=== PATIENT | male | born 1930 | race Caucasian/White ===

== ENCOUNTER → 2017-07-27 | Outpatient (CLI) | payer MEDICARE, OTHER | END | disposition home or self-care (01) | LOC: MRI 16:12 | DX: M51.16 Intervertebral disc disorders with radiculopathy, lumbar region (principal) | CPT/HCPCS: 72148 ==

== ENCOUNTER 2021-07-23 16:57 | Emergency (ER) | payer MEDICARE, OTHER ==
[~2021-07-23] VITALS: Ht 170.2 cm; Wt 77.2 kg
--- NOTE | 2021-07-23 17:56 | RAD ---
CT HEAD AND C-SPINE WO History: Fall, head and neck pain. Comparison: CT head 05/01/2021. Technique: Noncontrast CT of the head and cervical spine. Findings: CT HEAD: There is no evidence for intracranial mass or hemorrhage. There is no hydrocephalus or midline shift. No abnormal extra-axial fluid collections are present. No evidence of acute territorial infarction. Right maxillary sinus fluid level. There is a 1.4 x 5.9 cm left occipital extra-axial calcification adjacent to the inner table of the s kull redemonstrated. CT CERVICAL SPINE: There is no evidence for fracture in the cervical spine. Reversal of the normal cervical lordosis at C5-C6. Circumferential disc osteophyte complex causes severe left neural foraminal narrowing at C5-C6. Multilevel facet hypertrophy and degenerative disc disease. No destructive osseous lesions are seen. Limited evaluation of the soft tissues of the neck and of the upper chest is unremarkable. Impression: 1. No acute intracranial findings. 2. No acute osseous abnormality in the cervical spine. 3. 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 4. Cervical spondylosis with severe neuroforaminal narrowing on the left at C5-C6. ------- Exposure: One or more of the following individualized dose reduction techniques were utilized for thi s examination: 1. Automated exposure control 2. Adjustment of the mA and/or kV according to patient size 3. Use of iterative reconstruction technique. Electronically signed by: Eduardo Leblanc MD (07/23/2021 5:53 PM) [facility]
--- NOTE | 2021-07-23 18:18 | RAD ---
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 No periprosthetic fracture. No joint effusion or focal soft tissue abnormality. There are vascular calcifications. IMPRESSION: No acute osseous abnormality. Electronically signed by: Jacqueline Sexton MD (07/23/2021 6:15 PM) [id number]
[2021-07-23] MEDS ORDERED: HYDROcodone/APAP 5/325MG 1 TAB TABLET PO ONE (19:15)
[2021-07-23 20:34] VITALS: BP 147/84
--- NOTE | 2021-07-23 21:38 | PHYS DOC ---
Past Medical History Additional Past Medical Histor: Patient states he has no health history but he is on several medications. Past Surgical History: Knee Replacement Additional Past Surgical Histo: Bilateral knee replacement Smoking Status: Never Smoker Alcohol Use: None General Adult EDM: Chief Complaint: MECHANICAL FALL HPI: HPI: Patient is a 89 year old male who presents to the ED today complaining of 4 out of 10 right knee pain radiating to the right costa and ankle, symptoms began couple minutes prior to coming to the ED, patient states he was ambulating, his right knee gave out and he fell on it. Patient denies any loss of consciousness, reports hitting his left side of the head on a cabinet. He states he is on a blood thinner. Denies any neck pain. Denies any mid or low back pain. RN interpreted for [place] Review of Systems: Review of Systems: Constitutional: Denies fever or chills. [] Eyes: Denies change in visual acuity. [] HENT: Denies nasal congestion or sore throat. [] Respiratory: Denies cough or shortness of breath. [] Cardiovascular: Denies chest pain or edema. [] GI: Denies abdominal pain, nausea, vomiting, bloody stools or diarrhea. [] : Denies dysuria. [] Musculoskeletal: Reports right knee pain, right costa and right ankle pain, denies back pain Integument: Denies rash. [] Neurologic: Denies headache, focal weakness or sensory changes. [] [] Psychiatric: Denies depression or anxiety. [] Heart Score: C/O Chest Pain: N/A Risk Factors: Risk Factors: DM, Current or recent (<one month) smoker, HTN, HLP, family history of CAD, obesity. Risk Scores: Score 0 - 3: 2.5% MACE over next 6 weeks - Discharge Home Score 4 - 6: 20.3% MACE over next 6 weeks - Admit for Clinical Observation Score 7 - 10: 72.7% MACE over next 6 weeks - Early Invasive Strategies Current Medications: Current Medications Medications (Trade) Dose Ordered Sig/Shauna Start Time Stop Time Status Last Admin Dose Admin Acetaminophen/ Hydrocodone Bitart (Lortab 5/325) 1 tab 1X ONCE 07/23/21 19:15 07/23/21 19:16 DC 07/23/21 19:19 1 TAB Allergies: Allergies: Allergies Coded Allergies Type Severity Reaction Last Updated Verified No Known Drug Allergies 07/23/21 No Physical Exam: PE: Constitutional: Well developed, well nourished, no acute distress, non-toxic appearance. [] HENT: Normocephalic, atraumatic, bilateral external ears normal, oropharynx moist, no oral exudates, nose normal. [] Eyes: PERRLA, EOMI, conjunctiva normal, no discharge. [] Neck: Normal range of motion, no tenderness, supple, no stridor. [] Cardiovascular:Heart rate regular rhythm, no murmur [] Lungs & Thorax: Bilateral breath sounds clear to auscultation [] Abdomen: Bowel sounds normal, soft, no tenderness, no masses, no pulsatile masses. [] Skin: Warm, dry, no erythema, no rash. [] Back: No tenderness, no CVA tenderness. [] Extremities: Old healed surgical incision noted on the lateral aspect of the right knee, diffuse tenderness to the right anterior knee, limited range of motion to the right knee especially flexion due to pain, no tenderness, no cyanosis, no clubbing, venous stasis to bilateral lower extremities, +2 bilateral pedal pulses Neurologic: Alert and oriented X 3, normal motor function, normal sensory function, no focal deficits noted. Cranial nerves II through XII intact Psychologic: Affect normal, judgement normal, mood normal. 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 No periprosthetic fracture. No joint effusion or focal soft tissue abnormality. There are vascular calcifications. IMPRESSION: No acute osseous abnormality. Electronically signed by: Jacqueline Sexton MD (07/23/2021 6:15 PM) [id number] DICTATED and SIGNED BY: JACQUELINE SEXTON MD DATE: 07/23/21 [id number] 0 PROCEDURE: CT HEAD AND CERVICAL SPINE WO CT HEAD AND C-SPINE WO History: Fall, head and neck pain. Comparison: CT head 05/01/2021. Technique: Noncontrast CT of the head and cervical spine. Findings: CT HEAD: There is no evidence for intracranial mass or hemorrhage. There is no hydrocephalus or midline shift. No abnormal extra-axial fluid collections are present. No evidence of acute territorial infarction. Right maxillary sinus fluid level. There is a 1.4 x 5.9 cm left occipital extra-axial calcification adjacent to the inner table of the skull redemonstrated. CT CERVICAL SPINE: There is no evidence for fracture in the cervical spine. Reversal of the normal cervical lordosis at C5-C6. Circumferential disc osteophyte complex causes severe left neural foraminal narrowing at C5-C6. Multilevel facet hypertrophy and degenerative disc disease. No destructive osseous lesions are seen. Limited evaluation of the soft tissues of the neck and of the upper chest is unremarkable. Impression: 1. No acute intracranial findings. 2. No acute osseous abnormality in the cervical spine. 3. 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 4. Cervical spondylosis with severe neuroforaminal narrowing on the left at C5- C6. ------- Exposure: One or more of the following individualized dose reduction techniques were utilized for this examination: 1. Automated exposure control 2. Adjustment of the mA and/or kV according to patient size 3. Use of iterative reconstruction technique. Electronically signed by: Eduardo Ang MD (07/23/2021 5:53 PM) [facility] DICTATED and SIGNED BY: EDUARDO ANG MD DATE: 07/23/21 [id number] 0 Course & Med Decision Making: Course & Med Decision Making Pertinent Labs and Imaging studies reviewed. (See chart for details) This is a 89-year-old male patient presented to the ED to be evaluated after falling, complaining of right knee pain radiating to the right costa and right ankle. Also hit his head on a cabinet. CT of the head, cervical spine-negative for any acute findings, right knee x-rays interpreted by radiologist are negative for any acute findings. Right ankle and right tib-fib x-rays interpreted by Dr. Shay are negative discharge to home. Follow-up with PCP. Isabelle Disclaimer: Isabelle Disclaimer: This electronic medical record was generated, in whole or in part, using a voice recognition dictation system. Departure Departure Impression: Primary Impression: Right ankle pain Qualified Codes: M25.571 - Pain in right ankle and joints of right foot Additional Impressions: Right knee pain Qualified Codes: M25.561 - Pain in right knee Head contusion Qualified Codes: S00.03XA - Contusion of scalp, initial encounter Fall from standing Qualified Codes: W19.XXXA - Unspecified fall, initial encounter Disposition: HOME / SELF CARE / HOMELESS Condition: STABLE Referrals: CHEL BOX MD (PCP) follow up next week Patient Instructions: Ankle Pain, Fall Prevention and Home Safety, Knee Pain, [id number] Additional Instructions: You were evaluated in the emergency room after falling. Your CT of the head, neck, right knee x-rays, right tib-fib/leg x-ray, and right ankle x-rays are negative for any acute findings. Try to ice and elevate the affected areas. Follow-up with your doctor in 1 week NICK JAQUEZ APRN Jul 23, 2021 21:38
--- NOTE | 2021-07-23 21:43 | RAD ---
Exam: XR RT TIBIA+FIBULA , XR EXAM OF ANKLE_RIGHT 3VIEWS History: Fall, pain Comparison: None. Findings: Postsurgical changes from right total knee arthroplasty with expected positioning of the distal femur and proximal tibial components. Decreased osseous mineralization. No fracture or dislocation. Subtle 5 mm subchondral lucency in the medial talar dome. The ankle mortise is symmetric. Diffuse ankle sof t tissue swelling. [place] vascular calcifications throughout the lower leg and ankle. Impression: 1. No acute osseous abnormality of the right tibia and fibula and right ankle. 2. Subtle 5 mm subchondral lucency at the medial talar dome may represent osteochondral injury of un known chronicity. Electronically signed by: Eduardo Leblanc MD (07/23/2021 9:40 PM) [facility]
== END 2021-07-23 22:07 | disposition home or self-care (01) ==
LOC: ER 16:57
DX: S00.03XA Contusion of scalp, initial encounter (principal); M25.571 Pain in right ankle and joints of right foot; M25.561 Pain in right knee; M79.661 Pain in right lower leg; W18.39XA Other fall on same level, initial encounter; Y93.89 Activity, other specified; Y92.89 Other specified places as the place of occurrence of the external cause; Y99.8 Other external cause status
CPT/HCPCS: 70450; 72125; 73564; 73590; 73610; 99284-25